=== PATIENT | male | born 1980 | race Hispanic/Latino ===

== ENCOUNTER 2022-11-25 19:38 | Emergency (ER) | payer SELFPAY ==
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
== END 2022-11-26 00:22 ==
LOC: ER 19:38
DX: J96.00 Acute respiratory failure, unspecified whether with hypoxia or hypercapnia (principal); I46.9 Cardiac arrest, cause unspecified
CPT/HCPCS: 31500; 92950; 99285